=== PATIENT | male | born 2000 | race Asian ===

== ENCOUNTER 2022-04-20 13:22 | Emergency (ER) | payer BC ==
[~2022-04-20] VITALS: Ht 182.9 cm; Wt 81.6 kg
[2022-04-20 14:24] VITALS: BP 143/99
[2022-04-20] MEDS ORDERED: IBUP-2213 PO (15:40)
[2022-04-20] MEDS ORDERED: AMOX-999 PO (15:40)
[2022-04-20] MEDS ORDERED: BACI1PAC6 TP (15:40)
[2022-04-20] MEDS: BACITRACIN OINT 500 UNITS/GM PKT TP ONE (15:45)
[2022-04-20 16:55] VITALS: BP 119/75
--- NOTE | 2022-04-20 16:55 | NUR ---
Patient discharged with v/s stable. Written and verbal after care instructions given and explained with teachback. Patient alert, oriented and verbalized understanding of instructions. Ambulatory with steady gait. All questions addressed prior to discharge. ID band removed. Patient advised to follow up with PMD. Rx of Augmentin/bacitracin/ibuprofen given. Patient educated on indication of medication including possible reaction and side effects. Opportunity to ask questions provided and answered.
--- NOTE | 2022-04-20 16:55 | NUR ---
Pt declined to make a dog bite report at this time.
== END 2022-04-20 16:55 | disposition home or self-care (01) ==
LOC: MED 13:22
DX: S81.851A Open bite, right lower leg, initial encounter (principal); Z79.899 Other long term (current) drug therapy; W54.0XXA Bitten by dog, initial encounter; Y93.89 Activity, other specified; Y92.89 Other specified places as the place of occurrence of the external cause; Y99.8 Other external cause status
CPT/HCPCS: 90471; 90715; 99283